=== PATIENT | male | born 1980 | race Caucasian/White ===

== ENCOUNTER 2021-03-26 09:38 | Emergency (ER) | payer OTHER ==
[~2021-03-26] VITALS: Ht 182.9 cm; Wt 111.4 kg
[~2021-03-26 09:38] MED LIST: DULO1CAP6 PO; FERR324T2 PO; FOLIC ACID 1 MG TAB PO SCH; HYDR100C PO; HYDR50TA30 PO; LORA-622 PO; LYRI150C PO; MED REC COMMENT; METF500T13 PO; MULTIVITAMINS/MINERALS THERAP 1 TAB PO SCH; NALT50TA4 PO; ONDA-83 PO; PANT40TA29 PO; PRAZ2CAP PO; PROP60TA14 PO; PROP80TA PO; SUCR1TAB56 PO; THIA100T7 PO; TRAZ-257 PO; ZIPR40CA11 PO
[2021-03-26 11:15] LABS: HEMATOCRIT 42.9 % (42.0-52.0); HEMOGLOBIN 14.2 g/dl (13.5-17.5); MEAN CORPUSCULAR HEMOGLOBIN 29.4 pg (27.0-33.0); MEAN CORPUSCULAR HGB CONC 33.1 g/dl (32.0-36.5); MEAN CORPUSCULAR VOLUME 88.8 fl (80.0-96.0); RED BLOOD COUNT 4.83 10^6/uL (4.30-6.10); WHITE BLOOD COUNT 2.8 10^3/uL (4.0-10.0)
[2021-03-26 11:39] LABS: AMPHETAMINES LEVEL URINE NEGATIVE (NEGATIVE); BARBITURATES URINE NEGATIVE (NEGATIVE); BENZODIAZEPINES URINE NEGATIVE (NEGATIVE); CANNABINOIDS URINE NEGATIVE (NEGATIVE); COCAINE METABOLITE URINE NEGATIVE (NEGATIVE); METHADONE URINE NEGATIVE (NEGATIVE); OPIATES URINE NEGATIVE (NEGATIVE); PHENCYCLIDINE URINE NEGATIVE (NEGATIVE)
[2021-03-26 11:48] LABS: PLATELET COUNT, AUTOMATED 71 10^3/uL (150-450)
[2021-03-26 11:54] LABS: RSV AMPLIFICATION NEGATIVE (NEGATIVE)
[2021-03-26 12:14] LABS: ACETAMINOPHEN LEVEL < 2.0 UG/ML (10.0-30.0); ALBUMIN 3.8 GM/DL (3.2-5.2); ALT/SGPT 39 U/L (12-78); BILIRUBIN,DIRECT 0.3 MG/DL (0.0-0.2); BILIRUBIN,TOTAL 0.8 MG/DL (0.2-1.0); BLOOD UREA NITROGEN 14 MG/DL (7-18); CALCIUM LEVEL 9.3 MG/DL (8.5-10.1); CARBON DIOXIDE LEVEL 29 MEQ/L (21-32); CHLORIDE LEVEL 105 MEQ/L (98-107); ETHYL ALCOHOL (ETHANOL) < 0.003 % (0.000-0.010); GLOMERULAR FILTRATION RATE > 60.0 (>60); GLUCOSE, FASTING 117 MG/DL (70-100); POTASSIUM SERUM 4.5 MEQ/L (3.5-5.1); SALICYLATE LEVEL 2.4 MG/DL (5.0-30.0); SODIUM LEVEL 140 MEQ/L (136-145); TOTAL PROTEIN 6.7 GM/DL (6.4-8.2)
[2021-03-26] MEDS ORDERED: hydrOXYzine 50 MG TAB PO ONE ×2 (15:40→22:25)
[2021-03-26] MEDS ORDERED: HOME MED LIST COMPLETE! XX SCH (15:50)
[2021-03-26] MEDS ORDERED: LORazepam 2 MG TAB PO PRN (18:10)
[2021-03-26] MEDS ORDERED: OXAZEPAM 15 MG CAP PO ONE (18:10)
[2021-03-26] MEDS ORDERED: THIAMINE 100 MG TAB PO SCH (21:00)
[2021-03-26] MEDS ORDERED: ZIPRASIDONE 20MG CAPSULE (GEODON) PO ONE (22:25)
[2021-03-26] MEDS ORDERED: PREGABALIN 75 MG CAP(LYRICA) PO ONE (22:25)
[2021-03-26] MEDS ORDERED: traZODone 100 MG TAB PO ONE (22:25)
[2021-03-26] MEDS ORDERED: PROPRANOLOL 20 MG TAB PO ONE (22:25)
[2021-03-26] MEDS ORDERED: PRAZOSIN 1 MG CAP PO SCH (23:00)
[2021-03-27 00:33] VITALS: BP 135/96
[2021-03-27 03:22] VITALS: BP 131/76
[2021-03-27] MEDS ORDERED: PRAZOSIN 1 MG CAP PO SCH (21:00)
== END 2021-03-27 03:27 ==
LOC: M ED 09:38
DX: F10.10 Alcohol abuse, uncomplicated (principal); R45.851 Suicidal ideations; D69.6 Thrombocytopenia, unspecified; F32.A Depression, unspecified; F41.9 Anxiety disorder, unspecified; F43.10 Post-traumatic stress disorder, unspecified; F17.200 Nicotine dependence, unspecified, uncomplicated; Z87.19 Personal history of other diseases of the digestive system; Z88.8 Allergy status to other drugs, medicaments and biological substances

== ENCOUNTER 2021-07-11 03:19 | Emergency (ER) | payer OTHER ==
[~2021-07-11 03:19] MED LIST changes: -FOLIC ACID 1 MG TAB PO SCH; -MULTIVITAMINS/MINERALS THERAP 1 TAB PO SCH
[2021-07-11 04:52] LABS: BASO # 0.1 10^3/uL (0.0-0.2); EOS # 0.2 10^3/uL (0.0-0.5); EOS % 3.1 % (0.0-3.0); HEMATOCRIT 50.4 % (42.0-52.0); HEMOGLOBIN 17.2 g/dl (13.5-17.5); LYMPH # 1.3 10^3/uL (1.5-5.0); LYMPH % 22.3 % (24.0-44.0); MEAN CORPUSCULAR HEMOGLOBIN 29.1 pg (27.0-33.0); MEAN CORPUSCULAR HGB CONC 34.1 g/dl (32.0-36.5); MEAN CORPUSCULAR VOLUME 85.3 fl (80.0-96.0); MONO # 0.4 10^3/uL (0.0-0.8); MONO % 7.2 % (2.0-8.0); NEUTROPHILS # 3.8 10^3/uL (1.5-8.5); NEUTROPHILS % 65.2 % (36.0-66.0); PLATELET COUNT, AUTOMATED 122 10^3/uL (150-450); RED BLOOD COUNT 5.91 10^6/uL (4.30-6.10); WHITE BLOOD COUNT 5.8 10^3/uL (4.0-10.0)
[2021-07-11 05:00] VITALS: BP 146/100
[2021-07-11 05:11] LABS: AMPHETAMINES LEVEL URINE NEGATIVE (NEGATIVE); BARBITURATES URINE NEGATIVE (NEGATIVE); BENZODIAZEPINES URINE NEGATIVE (NEGATIVE); CANNABINOIDS URINE NEGATIVE (NEGATIVE); COCAINE METABOLITE URINE NEGATIVE (NEGATIVE); METHADONE URINE NEGATIVE (NEGATIVE); OPIATES URINE NEGATIVE (NEGATIVE); PHENCYCLIDINE URINE NEGATIVE (NEGATIVE)
[2021-07-11 05:22] LABS: ACETAMINOPHEN LEVEL < 2.0 UG/ML (10.0-30.0); ALBUMIN 4.3 GM/DL (3.2-5.2); ALT/SGPT 28 U/L (12-78); BILIRUBIN,DIRECT 0.3 MG/DL (0.0-0.2); BILIRUBIN,TOTAL 1.1 MG/DL (0.2-1.0); BLOOD UREA NITROGEN 10 MG/DL (7-18); CARBON DIOXIDE LEVEL 26 MEQ/L (21-32); CHLORIDE LEVEL 111 MEQ/L (98-107); CREATININE FOR GFR 0.96 MG/DL (0.70-1.30); ETHYL ALCOHOL (ETHANOL) 0.272 % (0.000-0.010); GLOMERULAR FILTRATION RATE > 60.0 (>60); GLUCOSE, FASTING 96 MG/DL (70-100); POTASSIUM SERUM 3.8 MEQ/L (3.5-5.1); SALICYLATE LEVEL 2.2 MG/DL (5.0-30.0); SODIUM LEVEL 145 MEQ/L (136-145); TOTAL PROTEIN 7.4 GM/DL (6.4-8.2)
== END 2021-07-11 05:15 | disposition left against medical advice (07) ==
LOC: M ED 03:19 → EDBD 03:19 → M ED 05:15
DX: Z53.21 Procedure and treatment not carried out due to patient leaving prior to being seen by health care provider (principal)